=== PATIENT | male | born 2000 | race Two or more races ===

== ENCOUNTER 2022-11-08 11:29 | Emergency (ER) | payer OTHER ==
[~2022-11-08] VITALS: Ht 180.3 cm; Wt 86.2 kg
[2022-11-08 11:29] VITALS: BP 129/75
--- NOTE | 2022-11-08 11:29 | NUR ---
BIBS C/O FLU LIKE SYMPTOMS SINCE SATURDAY, HEADACHE, BODY ACHES, AND COUGH
--- NOTE | 2022-11-08 11:47 | NUR ---
/SONNY W/ PT FOR EVAL
[2022-11-08] MEDS ORDERED: GUAI1TBM19 PO (12:01)
[2022-11-08] MEDS ORDERED: BENZ-13 PO (12:01)
[2022-11-08] MEDS ORDERED: PSEU120T83 PO (12:01)
--- NOTE | 2022-11-08 12:17 | NUR ---
Patient discharged to home in stable condition. Written and verbal after care instructions given. Patient verbalizes understanding of instruction.
== END 2022-11-08 12:18 | disposition home or self-care (01) ==
LOC: ER 11:36
DX: J06.9 Acute upper respiratory infection, unspecified (principal); R05.9 Cough, unspecified; Z79.899 Other long term (current) drug therapy